=== PATIENT | male | born 1970 | race Caucasian/White ===

== ENCOUNTER 2017-10-27 08:41 | Emergency (ER) | payer BC ==
--- OUTSIDE RECORDS SUMMARY | 2017-10-27 08:50 | XMS REPORT ---
:1970 External Reference #:[id number] Author Organization [facility] Address [address] [place] [address] Phone [phone] Care Team Providers Name Role Phone Vince Cagle M.D. Primary Care Physician Unavailable Payers Type Date Identification Numbers Payment Provider Subscriber Commercial Policy Number: [id number] [place] Plan Abdirahman Vega PayID: [id number] [address] [place] [address] Problems Date Description Provider Status Onset: 10/10/2017 Presbyopia Anette Gurrola O.D. Active Onset: 10/10/2017 Regular astigmatism Anette Gurrola O.D. Active Family History Date Family Member(s) Problem(s) Comments General Anaphylaxis Father No Current Problems Mother No Current Problems Social History Type Date Description Comments Marital Status Legal Status: Occupation [employer] Work Status Full-Time Employment ETOH Use Occasionally consumes alcohol Smoking Patient has never smoked Daily Caffeine Does Not Consume Caffeine Allergies, Adverse Reactions, Alerts Date Description Reaction Status Severity Comments 10/10/2017 NKDA active Medications Medication Date Status Form Strength Qnty SIG Indications Ordering Provider Glucosamine Active Tablets Unknown Chondroitin MSM 0 Formula Fluticasone Active Ointment 0.005% Unknown Propionate 0 No Active Hx Unknown Medications 8 - 8 Results Description No Information Procedures Description No Information Plan of Care 10/10/2017 - Anette Gurrola O.D.H52.4 PresbyopiaComments:Smoking can increase the risk of developing or worsening any eye related disease, as well as affect your overall health. If you are a smoker, we strongly recommend that you quit.If you are not a smoker, we strongly recommend that you do not start. You have presbyopia. This is when the lens in your eye loses the ability to change focus, and happens as we age. A pair of reading glasses will help you see up close.Follow up:2 Year Follow Up You can expect to have your eyes dilated at your next visit. If Dr. Gurrola orders any additional testing, it may require extra time. We recommend that you bring sunglasses, as dilation drops often make you light sensitive until they wear off. We always recommend you bring someone to drive you home if you are uncomfortable driving with your eyes dilated. If you have any questions before your next visit, feel free to call our office at .[phone] Regular astigmatism, bilateralComments: Astigmatism is a common vision condition that happens when a person's cornea is not symmetrical. Dr. Gurrola has given you a prescription to correct for this.
[2017-10-27 08:51] VITALS: BP 109/74
--- NOTE | 2017-10-27 08:58 | UC ---
Knee Pain HPI - HPI Summary HPI Summary: This patient is a 47 year old M presenting to [facility] care with a chief complaint of R knee pain that began at 1400 yesterday while playing soccer. The patient rates the pain 7/10 in severity. Symptoms aggravated by nothing. Symptoms alleviated by nothing. Patient denies lack of stability and clicking noise from knee. Patient states he collided with another player, and hit his knee against another players knee brace. - History of Current Complaint Chief Complaint: UCLowerExtremity Stated Complaint: R KNEE INJURY Time Seen by Provider: 10/27/17 08:49 Hx Obtained From: Patient Onset/Duration: Sudden Onset, Lasting Hours, Still Present Severity Initially: Moderate Severity Currently: Moderate Pain Intensity: 7 Pain Scale Used: 0-10 Numeric Aggravating Factor(s): Nothing Alleviating Factor(s): Nothing Able to Bear Weight: Yes - Allergies/Home Medications Allergies/Adverse Reactions: Allergies Allergy/AdvReac Type Severity Reaction Status Date / Time No Known Allergies Allergy Verified 10/27/17 08:51 PMH/Surg Hx/FS Hx/Imm Hx Previously Healthy: No Endocrine History: Other Other Endocrine History: Negative diabetes Cardiovascular History: Other Other Cardiovascular History: Palpitations - Surgical History Surgical History: Yes Surgery Procedure, Year, and Place: AGE 18- LEFT PATELLOR TENDON REPAIRED - Family History Known Family History: Positive: Other - Negative anesthesia reaction - Social History Occupation: Employed Full-time Lives: With Family Alcohol Use: Occasionally Substance Use Type: None Smoking Status (MU): Never Smoked Tobacco Review of Systems Constitutional: Other - Negative fever Musculoskeletal: Other: - Positive R knee pain. Negative lack of stability in knee and clicking noise from knee. All Other Systems Reviewed And Are Negative: Yes Physical Exam - Summary Physical Exam Summary: General: well-appearing, no pain distress Skin: warm, color reflects adequate perfusion, dry Head: normal Eyes: EOMI, CONNIE ENT: normal Neck: supple, nontender Respiratory: CTA, breath sounds present Cardiovascular: RRR Abdomen: soft, nontender Bowel: present Musculoskeletal: strength/ROM intact, Tender medial patella Neurological: sensory/motor intact, A&O x3 Psychological: affect/mood appropriate Triage Information Reviewed: Yes Vital Signs: Initial Vital Signs Temp 98.9 F 10/27/17 08:49 Pulse 70 10/27/17 08:49 Resp 18 10/27/17 08:49 BP 109/74 10/27/17 08:49 Pulse Ox 100 10/27/17 08:49 Vital Signs Reviewed: Yes Diagnostics - Radiology Knee XR Radiology Interpretation Completed By: Radiologist - Knee XR reveals, per radiologist, small suprapatellar joint effusion in an otherwise normal knee radiograph. If the patients symptoms persist, follow-up imaging is recommended. ED physician has reviewed this radiology report. Knee Pain Course/Dx - Course Course Of Treatment: DISCUSSED X-RAY RESULTS WITH THE PATIENT. F/U PMD IF NOT COMPLETELY IMPROVED; RECHECK SOONER IF WORSE. - Differential Dx/Diagnosis Provider Diagnoses: RIGHT PATELLA CONTUSION Discharge - Sign-Out/Discharge Documenting (check all that apply): Patient Departure All imaging exams completed and their final reports reviewed: Yes - Discharge Plan Condition: Stable Disposition: HOME Patient Education Materials: Contusion in Adults (ED), Knee Pain (ED) Referrals: Vince Cagle MD [Primary Care Provider] - Additional Instructions: FOLLOW UP WITH YOUR DOCTOR IF NOT COMPLETELY IMPROVED. GET RECHECKED FOR ANY WORSENING OF YOUR CONDITION OR QUESTIONS OR CONCERNS. - Billing Disposition and Condition Condition: STABLE Disposition: Home - Attestation Statements Document Initiated by Scribe: Yes Documenting Scribe: Maria Barlow Provider For Whom Scribe is Documenting (Include Credential): Jeffrey Ramirez MD Scribe Attestation: IMaria, scribed for Jeffrey Ramirez MD on 10/27/17 at 1035. Scribe Documentation Reviewed: Yes Provider Attestation: The documentation as recorded by the chandanibMaria enamorado accurately reflects the service I personally performed and the decisions made by me, Jeffrey Ramirez MD
--- NOTE | 2017-10-27 09:50 | RAD ---
INDICATION: Medial right patella pain after soccer injury COMPARISON: None TECHNIQUE: 4 view radiograph of the right knee. FINDINGS: The visualized bones are well-corticated and properly aligned. The joint spaces are properly maintained. There is a small suprapatellar joint effusion. There is no acute fracture, dislocation or other focal bony abnormality. IMPRESSION: Small suprapatellar joint effusion in an otherwise normal knee radiograph. If the patient's symptoms persist, follow-up imaging is recommended.
== END 2017-10-27 09:34 | disposition home or self-care (01) ==
LOC: UCEAST 08:41
DX: S80.01XA Contusion of right knee, initial encounter (principal); W21.89XA Striking against or struck by other sports equipment, initial encounter; Y93.66 Activity, soccer; Y92.9 Unspecified place or not applicable
CPT/HCPCS: 99201; G0463